=== PATIENT | male | born 1985 | race African-American/Black ===

== ENCOUNTER 2024-10-17 09:22 | Emergency (ER) | payer OTHER, SELFPAY ==
--- NOTE | ~2024-10-17 | CT_ITS ---
EXAMINATION: CT SOFT TISSUE NECK WITH CONTRAST CLINICAL INFORMATION: Swelling anterior neck with induration. 3 days' duration. COMPARISON: None available. TECHNIQUE: Following the intravenous administration of 60 mL of Omnipaque 350 intravenous contrast, helical imaging was performed in the axial plane with generation of coronal and sagittal reformatted images. This CT examination was performed using dose optimization techniques as appropriate, variously including the following: *Automated exposure control *Adjustment of mA and/or kV according to patient size (this includes techniques or standardized protocols for targeted exams where dose is matched to indication/reason for exam; i.e. extremities or head) *Use of iterative reconstruction technique FINDINGS: There is extensive soft tissue swelling involving the floor of the mouth with a central abscess collection in the base of the tongue measuring approximately 3.6 cm in AP, by 2.5 cm in transverse, by 3.1 cm in craniocaudad dimension. A small amount of the abscess has extended into the anterior right paramedian mylohyoid muscle. Findings are suspicious for Reginaldo's angina. No ectopic gas is noted. There is extension of inflammation into the bilateral submandibular spaces, and anterior cervical space. Numerous dental caries present in the mandible and maxilla. periapical lucencies noted involving tooth #3 and #4 with buckled is evidence (series 5, image 47). Periapical lucencies also noted involving tooth #18, and #20, with associated periapical lucencies and buccal dehiscence (series 5, image 64). This is likely the source of the infection. The mucosal space demonstrates no enhancing mass or airway compromise at this time. Mild mucosal thickening of the epiglottis, aryepiglottic folds, and soft palate. Mild preepiglottic edema is noted, extending from the inflammatory process at the base of the tongue. The preepiglottic fat planes remain intact. Mild hypertrophy of the tonsillar pillar soft tissues. Mild thickening of the bilateral platysma muscles. Reactive lymphadenopathy in the anterior and posterior cervical chains of the upper neck. The jugular veins are patent. No thrombosis. Visceral Space: -Thyroid gland: Normal. -Larynx and true cords are normal. -Subglottic trachea is patent and normal. -Cervical esophagus is normal. Retropharangeal Space: -Normal. Parapharyngeal Fat Planes: -Preserved and undisturbed. Telephone Lineworker Spaces: -Normal. Anterior Cervical Space: -Infiltrative changes bilaterally as discussed above. Imaged Intracranial Contents: -No mass effect, edema, or abnormal enhancement. Cortical and dural venous sinuses are patent. The skull base is normal. Globes and Orbits: -Normal. Paranasal Sinuses/Mastoids/Tympanic Spaces: -Normally aerated bilaterally. Lung Apices and Superior Mediastinal Structures: -Imaged lung apices are clear and superior mediastinal structures are normal. Bony Structures: -No suspicious bone lesions. No fractures. -Normal TM joints. CT/CT soft tissue neck w IV con IMPRESSION: 1. Soft tissue infection with abscess in the midline floor of the mouth as described, suspicious for Reginaldo's angina. The abscess cavity measures approximately 3.6 x 2.5 x 3.1 cm. 2. Left-sided periapical lucencies of the mandible involving tooth #18, and #20. There is a focus of buccal dehiscence involving tooth #18. This may be the source of the infection. There is maxillary dental disease as well. 3. Reactive appearing lymphadenopathy in the upper cervical chains. 4. No evidence of airway compromise at this time. 5. Additional ancillary findings as discussed. This critical result was discussed with Conchita Mayfield PA-C of the [facility] at 11:26 AM, 10/17/2024. It was ascertained that the content and urgency of the report was understood at the time of direct communication. Electronically signed by: Nazario Yan MD 10/17/2024 11:35 AM EDT
[2024-10-17 09:31] VITALS: BP 140/88; PULSE 85; RESP 16; TEMP 37.3; O2SAT 97; BMI 33.7
[2024-10-17 09:52] LABS: MANUAL DIFF FLAG NO
[2024-10-17 09:56] LABS: Hematocrit 44.5 % (42.0-52.0); Hemoglobin 16.0 g/dl (14.0-18.0); Imm Gran Abs Auto 0.07 X10*3/uL (0.00-0.03); Imm Gran Pct Auto 0.4 % (0.0-0.4); Lymphocytes Absolute Auto 1.0 X10*3/uL (1.2-4.9); Mean Corpuscular HGB Conc 36.0 g/dl (31.0-36.0); Mean Corpuscular Hemoglobin 30.4 pg (27.0-33.0); Mean Corpuscular Volume 84.6 fL (80.0-98.0); NRBC Abs Auto 0.000 X10*3/uL (0.0-0.012); NRBC Pct Auto 0.0 /100WBC (0.0-0.2); Platelet Count 203 X10*3/uL (160-400); Red Blood Count 5.26 X10*6/uL (4.60-5.80); White Blood Count 15.8 X10*3/uL (4.8-10.8)
[2024-10-17 10:02] LABS: IDNOW Serial# 58CA691E; Strep A Nucleic Acid Positive (Negative)
[2024-10-17 10:09] LABS: Anion Gap 14 (12-20); Blood Urea Nitrogen 7 mg/dL (9-16); Calcium 10.0 mg/dL (8.4-10.2); Carbon Dioxide 25 mmol/L (22-29); Chloride 105 mmol/L (96-108); Creatinine Clr Calc Pharmacy 131.3; Estimated Glomerular Filt Rate > 60; Potassium 3.5 mmol/L (3.3-5.1); Sodium 140 mmol/L (135-145)
--- NOTE | 2024-10-17 10:10 | ED_ITS ---
HPI - General Adult General Chief complaint: Dental/Oral Stated complaint: cellulitis and abscess of mouth Time Seen by Provider: 10/17/24 09:55 Source: patient and RN notes reviewed Mode of arrival: ambulatory Limitations: no limitations History of Present Illness ED Provider: Conchita Edwards PA-C HPI narrative: This is a 39-year-old male, with no known medical problems, who presents emergency department with complaints of neck swelling which started 3 days ago. Patient reports that on Thursday he had a sore throat and subjective fevers and chills. He states that this progressed and states that he had a sore throat but states that he now has more fullness and pain in his anterior neck. He denies any difficulty breathing or swallowing. Denies history of similar symptoms in the past. No sick contacts. He states that he had a axillary temperature of a 102?F yesterday at home. He states that he went to an urgent care this morning and was told to come to the emergency room for further evaluation. No other complaints or concerns at this time. MD complaint: Neck swelling Onset (ago): day(s) Radiation: non-radiation Quality: aching Pain Consistency: constant Relieving factors: none Exacerbating factors: none Associated symptoms: denies other symptoms Treatments prior to arrival: none Related Data Allergies Allergy/AdvReac Type Severity Reaction Status Date / Time No Known Allergies Allergy Verified 10/17/24 09:38 Review of Systems 2 Review of Systems: Yes all other systems are reviewed and are negative Constitutional: Constitutional: Reports as per [facility] Social History Social History Advance Directives: No Advance Directives Information Provided: Yes Physical Exam ED Vital Signs: Vital Signs - 24 hr 10/17/24 09:31 10/17/24 14:28 10/17/24 14:50 Temperature 99.2 F 99.2 F 99.2 F Pulse Rate 85 74 74 Respiratory Rate 16 18 18 Blood Pressure 140/88 H 122/70 122/70 Pulse Oximetry 97 98 98 Oxygen Delivery Method Room Air Room Air Room Air BMI result Body Mass Index 33.7 Const General: cooperative, comfortable and no acute distress Orientation/consciousness: patient oriented x3 Limitations: no limitations HENMT Other: Patient with fullness and induration noted in the submandibular region extending into the anterior neck, no cervical lymphadenopathy noted. Airway is widely patent. No appreciable swelling underneath the tongue. No trismus or drooling. mild appreciable hot potato voice noted Oropharynx is nonerythematous, no tonsillar hypertrophy or exudates. Uvula is midline. Head: Yes normal to inspection, Yes normocephalic and Yes atraumatic Ears: hearing grossly normal bilaterally and TM's normal bilaterally General nose exam: Normal external nose present Face and sinus: Yes normal facial exam Mouth: Normal oral and palatal mucosa present, oropharynx normal and moist mucous membranes Throat: Yes posterior oropharynx normal Eyes General: appearance normal, both eyes and all related structures Eyelids: Yes eyelids normal Conjunctivae: conjunctivae normal Sclerae: sclerae normal Pupils: Equal, round and reactive pupils present EOM: EOMs intact bilaterally Neck Neck: Yes normal visual inspection, Yes full ROM and Yes no lymphadenopathy Lymphatic: no lymphadenopathy noted Chest Chest palpation & inspection: normal inspection of the chest Resp Effort & Inspection: normal respiratory effort and able to speak in complete sentences Auscultation: clear to auscultation bilaterally, no crackles, no rales, no rhonchi and no wheezes Cardio Rate: regular rate Rhythm: regular rhythm Heart sounds: S1 normal heart sound present and S2 normal heart sound present GI Inspection: Yes normal to inspection Skin General skin exam: no rashes or lesions noted Trauma: no lacerations or abrasions Wounds: no wounds Neuro General: patient oriented x3 and moves all extremities Cranial nerves: Yes Equal, round and reactive pupils present Extrem General: Yes normal to inspection Right upper extremity: normal to inspection Left upper extremity: normal to inspection Right lower extremity: normal to inspection Left lower extremity: normal to inspection Medications Administered Discontinued Medications Generic Name Dose Route Start Last Admin Trade Name Ubaldo PRN Reason Stop Dose Admin Dexamethasone 10 mg 10/17/24 10:10 10/17/24 11:07 Dexamethasone 2 Mg Tablet PO 10/17/24 10:11 10 mg ONCE ONE Administration Sodium Chloride 2,259 mls @ 2,259 mls/hr 10/17/24 10:10 10/17/24 12:09 Ns IV 10/17/24 11:09 Infused .Q1H STA Infusion Acetaminophen 1,000 mg in 100 mls @ 400 mls/hr 10/17/24 10:10 10/17/24 11:23 Ofirmev IV 10/17/24 10:24 Infused ONCE ONE Infusion Piperacillin Sod/Tazobactam 50 mls @ 100 mls/hr 10/17/24 10:10 10/17/24 11:37 Sod 3.375 gm/ Sodium Chloride IV 10/17/24 10:39 Infused ONCE ONE Infusion Vancomycin HCl 2,000 mg in 500 mls @ 250 mls/hr 10/17/24 10:10 10/17/24 13:49 Vancomycin/Ns IV 10/17/24 12:09 Infused ONCE ONE Infusion Iohexol 100 ml 10/17/24 10:51 10/17/24 10:51 Iohexol 350 Mg/Ml 100 Ml Infus..Btl IV 10/17/24 10:52 60 ml ONCE ONE Administration Medical Decision Making Medical Decision Making MDM Narrative: This is a 39-year-old male who presents emergency department for evaluation of anterior neck swelling which started on Thursday. On arrival, vital signs reveal patient is mildly hypertensive at 140/88, temperature 99.2?. Pulse 85. Patient is speaking in full sentences under no acute distress. Patient has induration noted to the anterior neck extending into the submandibular region. He is speaking full sentences under no acute distress. No trismus, drooling. Prior to my evaluation, basic labs were obtained, as well as a strep test. Patient does have leukocytosis at 15.8 with left shift, chemistry revealing no significant electrolyte derangement. Lactic acid 0.9. Patient did test positive for strep throat. Oropharynx is widely patent, he has no swelling underneath the tongue. Differential diagnoses include abscess, cyst, strep pharyngitis, lymphadenopathy. Given induration noted to the anterior neck, will obtain CT soft tissue neck with IV contrast, will also medicate with IV Decadron, IV fluids, Tylenol, vanc and Zosyn. 1135 - received phone call from radiologist, CT scan is concerning for Reginaldo's angina. Appears that patient has a infection with abscess in the midline floor of the mouth, abscess cavity measures approximately 3.6 x 2.5 x 3.1. There is some periapical lucencies involving tooth 18 and 20. May be the source of the infection. Reactive lymphadenopathy in the upper cervical chains noted. Spoke to the radiologist, it appears that patient has no airway compromise at this time. I discussed this with my attending physician, Dr. Coffey who recommends transfer as we do not have coverage of maxillofacial and/or ENT. Page signed out to [facility] for possible transfer. 1145 - [facility] transfer line returns phone call, they state that they have plastic surgery coverage for maxillofacial at this time, they do not have any dentist to help assist in this procedure. Will reach out to [facility] for possible transfer of care. 1204 - Discussed case with [facility], and they return phone call stating that they have accepted the patient ED to ED transfer, accepting physician, Dr. Washington, [facility] is aware of this case. Transfer of care initiated. Utilizing ALS for airway precaution. Reassess patient, he is agreeable for transfer, no difficulty breathing or swallowing at this point. No precaution into patient required at this time. However will continue to closely monitor. 1315 - AMS at bedside. Patient remains to be stable, airway widely patent. He is under no acute respiratory or airway distress. Patient transferred for further assessment and intervention. Differential Diagnosis Differential Diagnoses: The differential diagnosis associated with the presentation includes Reginaldo's angina, abscess, tonsillitis Lab Data MDM Lab Attestation statement: I reviewed the patient's lab results. See MDM and course 10/17/24 09:47 10/17/24 09:47 Labs: Lab Results 10/17/24 Range/Units 09:47 WBC 15.8 H (4.8-10.8) X10*3/uL RBC 5.26 (4.60-5.80) X10*6/uL Hgb 16.0 (14.0-18.0) g/dl Hct 44.5 (42.0-52.0) % MCV 84.6 (80.0-98.0) fL MCH 30.4 (27.0-33.0) pg MCHC 36.0 (31.0-36.0) g/dl RDW 12.9 (11.0-16.0) % Plt Count 203 (160-400) X10*3/uL MPV 9.0 L (9.4-12.4) fL Immature Gran % (Auto) 0.4 (0.0-0.4) % Neut % (Auto) 87.7 H (45-73) % Lymph % (Auto) 6.2 L (20-40) % [place] % (Auto) 5.2 (2-11) % Eos % (Auto) 0.3 (0-4) % Baso % (Auto) 0.2 (0-2) % Lymph # (Auto) 1.0 L (1.2-4.9) X10*3/uL [place] # (Auto) 0.8 (0.1-1.2) X10*3/uL Eos # (Auto) 0.1 (0.0-0.4) X10*3/uL Baso # (Auto) 0.0 (0.0-0.2) X10*3/uL Abs Immat Gran (auto) 0.07 H (0.00-0.03) X10*3/uL Absolute Neuts (auto) 13.9 H (2.0-8.3) x10*3/uL Absolute Nucleated RBC 0.000 (0.0-0.012) X10*3/uL Nucleated RBC % (auto) 0.0 (0.0-0.2) /100WBC Sodium 140 (135-145) mmol/L Potassium 3.5 (3.3-5.1) mmol/L Chloride 105 (96-108) mmol/L Carbon Dioxide 25 (22-29) mmol/L Anion Gap 14 (12-20) BUN 7 L (9-16) mg/dL Creatinine 0.97 (0.5-1.4) mg/dL Estim Creat Clear Calc 131.3 Estimated GFR > 60 Random Glucose 113 (60-115) mg/dL Lactic Acid 0.9 (0.5-2.0) mmol/L Calcium 10.0 (8.4-10.2) mg/dL S. pyogenes GrpA GERI Positive A (Negative) Radiology Impression Discussion of test interpretation with radiology: I have reviewed the radiologist's reading. Radiologist Impression: FINDINGS: There is extensive soft tissue swelling involving the floor of the mouth with a central abscess collection in the base of the tongue measuring approximately 3.6 cm in AP, by 2.5 cm in transverse, by 3.1 cm in craniocaudad dimension. A small amount of the abscess has extended into the anterior right paramedian mylohyoid muscle. Findings are suspicious for Reginaldo's angina. No ectopic gas is noted. There is extension of inflammation into the bilateral submandibular spaces, and anterior cervical space. Numerous dental caries present in the mandible and maxilla. periapical lucencies noted involving tooth #3 and #4 with buckled is evidence (series 5, image 47). Periapical lucencies also noted involving tooth #18, and #20, with associated periapical lucencies and buccal dehiscence (series 5, image 64). This is likely the source of the infection. The mucosal space demonstrates no enhancing mass or airway compromise at this time. Mild mucosal thickening of the epiglottis, aryepiglottic folds, and soft palate. Mild preepiglottic edema is noted, extending from the inflammatory process at the base of the tongue. The preepiglottic fat planes remain intact. Mild hypertrophy of the tonsillar pillar soft tissues. Mild thickening of the bilateral platysma muscles. Reactive lymphadenopathy in the anterior and posterior cervical chains of the upper neck. The jugular veins are patent. No thrombosis. Visceral Space: -Thyroid gland: Normal. -Larynx and true cords are normal. -Subglottic trachea is patent and normal. -Cervical esophagus is normal. Retropharangeal Space: -Normal. Parapharyngeal Fat Planes: -Preserved and undisturbed. Senior Telecommunications Engineer Spaces: -Normal. Anterior Cervical Space: -Infiltrative changes bilaterally as discussed above. Imaged Intracranial Contents: -No mass effect, edema, or abnormal enhancement. Cortical and dural venous sinuses are patent. The skull base is normal. Globes and Orbits: -Normal. Paranasal Sinuses/Mastoids/Tympanic Spaces: -Normally aerated bilaterally. Lung Apices and Superior Mediastinal Structures: -Imaged lung apices are clear and superior mediastinal structures are normal. Bony Structures: -No suspicious bone lesions. No fractures. -Normal TM joints. CT/CT soft tissue neck w IV con IMPRESSION: 1. Soft tissue infection with abscess in the midline floor of the mouth as described, suspicious for Reginaldo's angina. The abscess cavity measures approximately 3.6 x 2.5 x 3.1 cm. 2. Left-sided periapical lucencies of the mandible involving tooth #18, and #20. There is a focus of buccal dehiscence involving tooth #18. This may be the source of the infection. There is maxillary dental disease as well. 3. Reactive appearing lymphadenopathy in the upper cervical chains. 4. No evidence of airway compromise at this time. 5. Additional ancillary findings as discussed. This critical result was discussed with Conchita Mayfield PA-C of the [facility] at 11:26 AM, 10/17/2024. It was ascertained that the content and urgency of the report was understood at the time of direct communication. Electronically signed by: Nazario Yan MD 10/17/2024 11:35 AM EDT RP Dictated By: Nazario Yan MD Critical Care Time Critical Care Time Critical Care Time: Yes Total Critical Care Time: 60 Attestation: I have personally provided critical care time exclusive of time spent on separately billable procedures. Time includes review of lab data, radiology results, discussion with consultants, and monitoring for potential decompensation. Intervention performed as documented. Discharge Plan Discharge Clinical Impression: Reginaldo's angina Patient Disposition: [facility] Transfer Details: [facility] - ED to ED transfer, accepting ED physician Dr. Washington Interventions: Acute Care Transfer Worksheet (ED) Last Done: 10/17/24 14:50 Discharge Date/Time: 10/17/24 16:36 Print Language: Anguillan
--- NOTE | 2024-10-17 10:38 | PC.NURSE ---
Patient away for CT scan. Will medicate upon return. 20g IV access established to Left AC. Care ongoing by this RN.
[2024-10-17] MEDS: iohexoL 350 MG/ML 100 ML INFUS..BTL IV (10:51)
[2024-10-17] MEDS: vancomycin/NS 2,000 MG/500 ML PLAST..BAG 250 MG IV (11:49)
--- NOTE | 2024-10-17 14:00 | PC.NURSE ---
pt to be transferred to [facility]- awating ALS transport at thsi time, pt offers no complaints, plan of care ongoing
[2024-10-17 14:28] VITALS: BP 122/70; PULSE 74; RESP 18; TEMP 37.3; O2SAT 98
[2024-10-17 14:50] VITALS: BP 122/70; PULSE 74; RESP 18; TEMP 37.3; O2SAT 98
--- NOTE | 2024-10-17 14:56 | PC.NURSE ---
bedside report given to [facility]- vss, no acute distress on transfer.
--- NOTE | 2024-10-17 14:57 | PC.NURSE ---
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
== END 2024-10-17 16:36 | disposition short-term general hospital (02) ==
PROVIDERS: Emergency Provider Emergency Medicine Emergency Medical Services
DX: K12.2 Cellulitis and abscess of mouth (principal); J02.9 Acute pharyngitis, unspecified; R50.9 Fever, unspecified
CPT/HCPCS: 70491; 80048; 83605; 85025; 87040; 87651; 96365; 96367; 96375; 99285; 99291; J0131; J2543; J3373; J8540; Q9967

== ENCOUNTER → 2024-10-17 10:10 | Outpatient (BNV) | payer OTHER, SELFPAY | PROVIDERS: Emergency Provider Emergency Medicine Emergency Medical Services; Visit Provider Radiology Diagnostic Radiology | DX: R22.1 Localized swelling, mass and lump, neck (principal) | CPT/HCPCS: 70491 ==